=== PATIENT | female | born 1960 | race Caucasian/White ===

== ENCOUNTER 2022-09-04 14:35 | Emergency (ER) | payer BC ==
[2022-09-04 14:40] VITALS: TEMP 98
[2022-09-04] MEDS ORDERED: HYDROmorphone 1 MG/ML 1 ML SYRINGE IVP STA (15:23)
--- NOTE | 2022-09-04 15:26 | XR ---
EXAMINATION TYPE: XR ankle complete LT DATE OF EXAM: 09/04/2022 CLINICAL HISTORY: Fall injury with pain. Obvious deformity. TECHNIQUE: Frontal, lateral and oblique images of the left ankle are obtained. COMPARISON: None. FINDINGS: Acute comminuted displaced fracture through the lateral malleolus with 4.3 x 2.2 cm fractur e fragment displaced laterally and posteriorly. There is ankle mortise disruption with posterior and lateral displacement of the talus and abnormal lateral angulation or tilting. Moderate associated sof t tissue swelling is seen. No distinct fracture fragment at the medial malleolus. Likely fragmentatio n through the posterior malleolus. IMPRESSION: As above. Mortise disruption with displaced lateral malleolar fracture and suspected post erior malleolus or or tibial fracture.
--- NOTE | 2022-09-04 15:28 | ED ---
Lower Extremity Injury HPI - General Source: patient, RN notes reviewed Mode of arrival: ambulatory Limitations: no limitations <Kayla Lancaster - Last Filed: 09/04/22 18:11> <Kp Galloway - Last Filed: 09/04/22 22:19> - General Chief Complaint: Extremity Injury, Lower Stated Complaint: lt ankle injury Time Seen by Provider: 09/04/22 15:04 - History of Present Illness Initial Comments: Patient is a pleasant 62-year-old female presenting to the emergency room after slipping and falling while walking out of her bathroom earlier this afternoon. She reports that she believes that her foot hit the door frame of the bathroom and consequently immediately following she noticed a deformity to her ankle along with pain swelling and impaired range of motion. She denies any numbness or tingling to the joint and reports that though the foot is colder she admits to not wearing any socks since the event occurred and states that that does happen with her feet at times. She has had previous orthopedic injuries in the past but denies any other significant past medical history. (Stacey Lancaster) - Related Data Previous Rx's Medication Instructions Recorded Sulfamethox-Tmp 800-160Mg [Bactrim 2 tab PO Q12HR 7 Days #28 tab 05/25/22 DS 800-160 mg] Allergies Allergy/AdvReac Type Severity Reaction Status Date / Time No Known Allergies Allergy Verified 09/04/22 14:40 Review of Systems ROS Other: All systems not noted in ROS Statement are negative. <Kayla Lancaster - Last Filed: 09/04/22 18:11> ROS Other: All systems not noted in ROS Statement are negative. <Kp Galloway - Last Filed: 09/04/22 22:19> ROS Statement: Those systems with pertinent positive or pertinent negative responses have been documented in the HPI. Past Medical History Past Medical History: No Reported History History of Any Multi-Drug Resistant Organisms: None Reported Past Surgical History: Cholecystectomy Past Psychological History: No Psychological Hx Reported Smoking Status: Never smoker Past Alcohol Use History: None Reported Past Drug Use History: None Reported <Kayla Lancaster - Last Filed: 09/04/22 18:11> General Exam General appearance: alert, in no apparent distress Head exam: Present: atraumatic, normocephalic, normal inspection Eye exam: Present: normal appearance, PERRL, EOMI. Absent: scleral icterus, conjunctival injection, periorbital swelling ENT exam: Present: normal exam, mucous membranes moist Neck exam: Present: normal inspection, full ROM Respiratory exam: Absent: respiratory distress, accessory muscle use Cardiovascular Exam: Present: regular rate GI/Abdominal exam: Absent: distended Left Ankle exam: Present: tenderness, swelling, deformity, dislocation. Absent: full ROM, abrasion, laceration Neurovascular tendon exam: Present: no vascular compromise Gait: not tested/not observed Back exam: Present: normal inspection Neurological exam: Present: alert, oriented X3, CN II-XII intact Psychiatric exam: Present: normal affect, normal mood Skin exam: Present: warm, dry, intact, normal color. Absent: rash <Kayla Lancaster - Last Filed: 09/04/22 18:11> Course - Reevaluation(s) Time: 17:39 - Consultations Time: 15:28 <Kayla Lancaster - Last Filed: 09/04/22 18:11> Vital Signs 09/04/22 09/04/22 09/04/22 14:37 16:36 16:41 Temperature 98 F Pulse Rate 87 87 99 Respiratory 20 18 18 Rate Blood Pressure 151/65 151/79 150/84 O2 Sat by Pulse 100 100 100 Oximetry 09/04/22 09/04/22 09/04/22 16:46 16:51 17:06 Temperature Pulse Rate 91 89 80 Respiratory 12 14 18 Rate Blood Pressure 152/82 153/84 145/75 O2 Sat by Pulse 100 100 99 Oximetry 09/04/22 09/04/22 09/04/22 17:21 17:36 17:51 Temperature Pulse Rate 86 78 75 Respiratory 16 16 18 Rate Blood Pressure 150/86 151/83 145/68 O2 Sat by Pulse 99 97 98 Oximetry - Reevaluation(s) Reevaluation #1: Patient was some nausea and dry heaving without emesis after sedation and movement for computed tomography scan IV Zofran given with improvement in symptoms without episodes of emesis. Will continue to monitor. (Kayla Lancaster) - Consultations Consultation #1: Spoke with Dr. Dejesus attending orthopedist on-call for fall related fracture. He recommended reduction of joint in the emergency room then application of a bulky Cordero posterior splint with padding and molding post reduction computed tomography scan with nonweightbearing and then follow-up in the office next week. (Kayla Lancaster) Procedures - Orthopedic Fracture Reduction Fracture #1 Consent Obtained: written consent Side: left Fracture Reduction Location: tibia, other (lateral malleolus) Analgesia: procedural sedation Technique: direct manipulation Post Reduction X-rays Demonstrate: anatomical reduction Post-Reduction Neuro Exam: intact Post-Reduction Vascular Exam: intact Splint Applied: Yes (Bulky Cordero posterior splint with Alber wrap well-padded) Patient Tolerated Procedure: well - Orthopedic Splinting/Casting Injury #1 Side: left Lower Extremity Injury Location: ankle Lower Extremity Immobilizer: posterior splint, Cordero dressing, Alber wrap Other Orthopedic Equipment: crutches <Kayla Lancaster - Last Filed: 09/04/22 18:11> - Procedural Sedation Procedural Sedation Start Time: 16:40 Procedural Sedation Stop Time: 17:06 Indications: fracture/dislocation reduction ASA Class: I Mallampati Airway Score: 2 Time of Last PO Intake: 11:30 Preparation: cardiac monitor technician applied, pulse oximeter, capnometry used, supplemental O2 applied, suction/airway equipment at bedside Ketamine: IV Ketamine Dose: 40 IV Propofol Dose (mgs): 40 Complications: none Patient Tolerated Procedure: well <Kp Galloway - Last Filed: 09/04/22 22:19> - Orthopedic Fracture Reduction Fracture #1 Additional Comments: Neurovascularly intact following the splinting and reduction. <2s cap refill, intact sensation in dital left toes. (Kp Galloway) - Procedural Sedation Presedation Evaluation: Completed. No history of complications. (Kp Galloway) Medical Decision Making - Radiology Data Radiology results: report reviewed, image reviewed <Kayla Lancaster - Last Filed: 09/04/22 18:11> - Medical Decision Making 62-year-old female presenting to the emergency room with a slip and fall hitting her left ankle on the door frame of the bathroom. She reports immediate pain and dislocation at the time of injury. No numbness or tingling. Positive pulses. X-ray of the ankle obtained while in triage. X-ray of the left ankle complete intervertebral May showing a disc placed commuted fracture through the lateral malleolus. Will give Dilaudid for pain and page orthopedic on-call physician for consultation. Spoke with Dr. Dejesus as indicated in consult regarding fracture. No availability for surgery today. Advisement received 4 reduction and post reduction computed tomography scan with bulky Cordero splint application. No indication for laboratory studies. Attempted reduction without sedation unable to successfully reduce. Conscious sedation required for reduction. Conscious sedation with reduction and splint application completed by myself and Dr. Galloway see procedures for details regarding reduction sedation and splinting. Improved neurovascular status afterwards with increased capillary refill and improved warmth to tell. Unchang ed pulse. Will obtain post reduction CT as advised. Patient currently resting comfortably with and waking without complications from sedation. Miles nausea without emesis after computed tomography scan from sedation IV Zofran given without further episodes of emesis now resting comfortably and hemodynamically stable off of oxygen well orientated post-sedation. Computed tomography scan of the left ankle post reduction image interpreted by me shows good alignment and reduction of dislocated fracture to the lateral malleolus. Radiologist's report also reviewed. Return parameters to the emergency department reviewed. Will discharge patient home in stable condition with spouse and crutches for nonweightbearing status. Education regarding splint pain management and follow-up with orthopedist discussed. Case discussed and managed with Dr. Galloway. (Kayla Lancaster) - Radiology Data X-ray of the left ankle completed in impression by radiologist acute comminuted displaced fracture through the lateral malleolus with a 4.3 x 2.2 cm fracture fragment displaced laterally and posteriorly. There is ankle mortise disruption with posterior and lateral displacement of the talus and abnormal lateral angulation or tilting. Moderate soft tissue swelling is seen. No distinct fracture fragment at the base of the medial malleolus. Likely fragmentation through the posterior malleolus. CT of the left ankle impression by radiologist oblique fracture of the distal fibula and separation up to 5 mm of fragment no dislocation. Ankle mortise is anatomical. There is a triangular-shaped 12 mm chip fracture of the posterior malleolus on the medial aspect. No significant placement. Talus is intact. (Kayla Lancaster) Disposition Is patient prescribed a controlled substance at d/c from ED?: No <Kayla Lancaster - Last Filed: 09/04/22 18:11> <Kp Galloway - Last Filed: 09/04/22 22:19> Clinical Impression: Fracture of ankle, lateral malleolus, left, closed Disposition: HOME SELF-CARE Condition: Stable Instructions (If sedation given, give patient instructions): Ankle Fracture (ED), Crutch Instructions (ED), Moderate Sedation (ED) Additional Instructions: Please utilize Tylenol 3 starter pack for pain as needed, may supplement with [id number] ibuprofen. Please maintain splint to left lower extremity treating as a cast avoiding getting the splint wet. Please maintain nonweightbearing status of the left lower extremity with the use of crutches. Please contact orthopedic office on Wednesday to schedule an appointment with Dr. Dejesus. Please return to the Emergency Department if symptoms worsen or any other concerns. Referrals: Jose Miguel Thompson DO [Primary Care Provider] - 1-2 days Long Dejesus MD [Medical Doctor] - 1-2 days
[2022-09-04] MEDS ORDERED: KETAMINE HCL IN 0.9 % NACL 50 MG/5 ML SYRINGE IV ONE (16:02)
[2022-09-04] MEDS ORDERED: PROPOFOL 10 MG/ML 20 ML VIAL IV ONE (16:02)
[2022-09-04] MEDS ORDERED: SODIUM CHLORIDE 0.9% 1,000 ML IV STA (16:02)
[2022-09-04] MEDS ORDERED: ACET/COD 300 MG/30 MG STARTER PACK 6 TAB BTL PO STA (17:16)
[2022-09-04] MEDS ORDERED: ONDANSETRON 4 MG/2 ML VIAL IVP STA (17:22)
--- NOTE | 2022-09-04 17:47 | CT ---
CT scan of the left ankle. History post reduction. Fracture. Comparison none. FINDINGS: Images obtained from the mid tibia to the bottom of the calcaneus with no contrast. There is oblique fracture of the distal fibula. There is separation up to 5 mm of the fragments. No d islocation. The ankle mortise is anatomic. There is a triangular shaped 12 mm chip fracture of the po sterior malleolus on the medial aspect. No significant displacement. The talus is intact. There is mo derate plantar and Achilles calcaneal spurring. The bones of the midfoot appear intact. IMPRESSION: Acute fractures of the distal tibia and fibula as above. Ankle joint appears anatomic. No complicatin g process seen. Moderate calcaneal spurring.
[2022-09-04 17:58] VITALS: BP 145/68; PULSE 75; RESP 18
== END 2022-09-04 18:22 | disposition home or self-care (01) ==
LOC: EC 14:35
DX: S82.62XA Displaced fracture of lateral malleolus of left fibula, initial encounter for closed fracture (principal); W01.0XXA Fall on same level from slipping, tripping and stumbling without subsequent striking against object, initial encounter; Y92.002 Bathroom of unspecified non-institutional (private) residence as the place of occurrence of the external cause
CPT/HCPCS: 99284; 96374; 96375 ×2; 96361 ×2; 99152; 99153 ×4; 73610; 73700; 27788; J2405; J1170; J2704; 29515

== ENCOUNTER 2022-09-16 14:19 | Day surgery (SDC) | payer BC ==
[2022-09-11 13:30] VITALS: BMI 27.4
[2022-09-16 14:02] VITALS: RESP 16
[~2022-09-16 14:19] MED LIST: DEXAMETHASONE SOD PHOSPHATE 4 MG/ML 1 ML VIAL IV ONE; LACTATED RINGERS 1,000 ML IV SCH; LIDOCAINE 1% (10MG/ML) FOR IV START INTRADERMA PRN; MIDAZOLAM 2 MG/2 ML VIAL IV PRN; ONDANSETRON 4 MG/2 ML VIAL IVP ONE
[2022-09-16] MEDS ORDERED: fentaNYL (PF) 50 MCG/1 ML VIAL IVP ONE (14:50)
[2022-09-16] MEDS ORDERED: MIDAZOLAM 2 MG/2 ML VIAL IVP ONE (14:50)
[2022-09-16] MEDS ORDERED: ROPIVACAINE 5 MG/ML 30 ML VIAL ONE (16:21)
[2022-09-16] MEDS ORDERED: LIDOCAINE 4% LTA KIT (4 ML) TOPICAL ONE (16:21)
[2022-09-16] MEDS ORDERED: SODIUM CHLORIDE 0.9% (PF) 10 ML VIAL ONE (16:21)
[2022-09-16] MEDS ORDERED: fentaNYL (PF) 50 MCG/ML 2 ML AMP ONE (16:21)
[2022-09-16] MEDS ORDERED: MIDAZOLAM 2 MG/2 ML VIAL ONE (16:21)
[2022-09-16] MEDS ORDERED: PROPOFOL 10 MG/ML 20 ML VIAL IV ONE (16:21)
[2022-09-16] MEDS ORDERED: SUCCINYLCHOLINE CHLORIDE 200 MG/10 ML VIAL IV ONE (16:21)
[2022-09-16] MEDS ORDERED: LIDOCAINE 2% INJ 20 MG/ML (2 ML VIAL) ONE (16:21)
--- NOTE | 2022-09-16 16:40 | P.ANPRN ---
Procedure Note - Anesthesia - Nerve Block Performed Left Adductor Canal Time Out Performed: Yes (14:49) Date of Procedure: 09/16/22 Procedure Start Time: 14:49 Procedure Stop Time: 14:54 Location of Patient: PreOp Indication: Acute Post-Operative Pain, Requested by Surgeon (Dr Dejesus) Sedation Type: Sedate with meaningful contact maintained Preparation: Sterile Prep Position: Supine Catheter: None Needle Types: Pajunk Needle Gauge: 21 Ultrasound used to visualize needle placement: Yes Ultrasound used to observe medication spread: Yes Injectate: 0.5% Ropivacaine (see comment for volume) (15cc) Blood Aspirated: No Pain Paresthesia on Injection Noted: No Resistance on Injection: Normal Image Stored and Saved: Yes Events: Uneventful and Well Tolerated
--- NOTE | 2022-09-16 16:41 | P.ANPRN ---
Procedure Note - Anesthesia - Nerve Block Performed Left Popliteal Time Out Performed: Yes Date of Procedure: 09/16/22 Procedure Start Time: 14:56 Procedure Stop Time: 15:01 Location of Patient: PreOp Indication: Acute Post-Operative Pain, Requested by Surgeon (Dr Dejesus) Sedation Type: Sedate with meaningful contact maintained Preparation: Sterile Prep Position: Right Lateral Catheter: None Needle Types: Pajunk Needle Gauge: 21 Ultrasound used to visualize needle placement: Yes Ultrasound used to observe medication spread: Yes Injectate: 0.5% Ropivacaine (see comment for volume) (15cc +5cc PF normal saline) Blood Aspirated: No Pain Paresthesia on Injection Noted: No Resistance on Injection: Normal Image Stored and Saved: Yes Events: Uneventful and Well Tolerated
[2022-09-16] MEDS ORDERED: LACTATED RINGERS 1,000 ML IV ONE ×3 (17:10→18:09)
--- NOTE | 2022-09-16 18:15 | FL ---
Intraoperative/procedural fluoroscopic services were provided. Total fluoroscopy time is 1 minute 18 seconds with a total of 5 submitted images to PACS. Please see the operative/procedural note for furt her details.
[2022-09-16] MEDS: HYDROmorphone 0.5 MG/0.5 ML SYRINGE IVP PRN ×3 (18:24→18:54)
[2022-09-16 18:29] VITALS: TEMP 97.2
[2022-09-16] MEDS ORDERED: HYDROcodone/APAP 5-325MG 1 EACH TAB ONE (19:07)
[2022-09-16 19:36] VITALS: BP 158/76; PULSE 94
--- NOTE | 2022-09-23 20:48 | P.OP ---
Date of Procedure: 09/16/22 Preoperative Diagnosis: 1. Closed left trimalleolar equivalent ankle fracture dislocation Postoperative Diagnosis: Same Procedure(s) Performed: 1. Open reduction internal fixation of left lateral malleolus fracture 2. Open repair left ankle deltoid ligament 3. Open reduction and internal fixation left ankle syndesmosis Anesthesia: luz MEADOWS Surgeon: Long Dejesus Road Conductor #1: Kyrie Hurt Estimated Blood Loss (ml): 10 IV fluids (ml): 1,100 Pathology: none sent Condition: stable Disposition: PACU Indications for Procedure: The patient is very pleasant previously healthy 62-year-old female who sustained a closed left injury to her left ankle. She was seen in the emergency department here and underwent a closed reduction and application of splint. She also had a postreduction computed tomography scan. She was referred to my office. I met with the patient and her . My recommendation was to proceed with open reduction internal fixation of her left ankle. The patient understands the potential risks and competitions of surgery. I had a long discussion with the patient prior to surgery on the potential risks and complications of ankle fracture surgery. These risks include but are not l imited to risk of anesthesia, superficial infection, deep infection, delayed wound healing, superficial wound necrosis, deep wound necrosis, damage to local blood vessels or nerves, fracture nonunion, fracture malunion, postoperative displacement of the ankle mortise, postoperative displacement of the syndesmosis, malreduction of the ankle mortise, posttraumatic arthritis, chronic pain, chronic swelling, an inability to regain preinjury level of function, generalized dissatisfaction with surgical outcome, DVT, PE, other medical complications, and possibly loss of life or limb. The patient understands that while these are the most common complications there are other less common complications possible. They provided their verbal and written consent to go forward with surgery. Description of Procedure: The patient was identified in preoperative holding and the correct left ankle was marked with my initials. I reviewed the consent form with the patient on all of her questions were answered. The patient was given a block by anesthesia. She was then brought back to the operating room. She was transferred to the OR table where general anesthetic and preoperative antibiotics were given. The splint was taken down off of her left leg and there was wrinkling of the skin. A tourniquet was applied the proximal aspect of the left leg. A bump was placed in the left buttock internally rotating the leg. A ramp was used to elevate the left leg to facilitate imaging. The nonoperative leg was secured to the OR table with foam and tape. The left arm was carefully draped across the body. None sterile drapes were applied. A chlorhexidine brush was used for a pre-scrub. The left leg was prepped and draped in the standard sterile fashion. Prior to starting surgery timeout was performed identifying the correct patient, operative extremity, and procedure. The patient's leg was then elevated, exsanguinated with an Esmarch bandage, and the tourniquet was inflated to 250 mmHg. I began by making a longitudinal incision centered directly over the lateral malleolus. Skin incision with a scalpel and dissection was carried down carefully through subcutaneous tissue. A branch of the superficial peroneal nerve was identified and carefully retracted. The periosteum over the distal fibula and the fascia over the peroneal muscles was incised directly over the fibula. The fracture was immediately identified. Hematoma and early callus was gently debrided from the fracture site. Reduction was performed and held with a [id number] reduction clamp. A 2.7 mm lag screw was placed anteriorly to posteriorly across the fracture generating excellent compression. A precontoured locking distal fibula plate was then placed over the lateral malleolus. Its position was verified with fluoroscopy. It was centered over the fibula and nonlocking screws were placed proximal to the fracture. A single nonlocking screw was placed distal to the fracture bringing the plate down to bone. Locking screws were then placed distally. The nonlocking screw was removed distally and replaced with a locking screw so that all screws distally would be flush with the plate to avoid prominence. Fluoroscopy was brought in to verify the reduction of the fibula which appeared to be anatomically reduced. A manual external rotation stress x-ray was performed which showed persistent widening of the medial clear space. I then elected to perform an open deltoid ligament repair. A longitudinal incision was made directly over the medial malleolus. Skin incision with a scalpel and dissection was carried down carefully through subcutaneous tissue with tenotomy scissors. A branch of the saphenous vein was controlled with electrocautery. Immediately upon incising the deep tissue there is a full-thickness deltoid disruption off the medial malleolus. A portion of the deltoid was flipped into the medial gutter of the ankle joint. This interposed tissue was gently removed. On inspection the medial gutter there was a large osteochondral fragment. On inspection of the medial dome of the talus there was a large osteochondral fracture. This was perforated with a 0.054 K wire. Once the medial gutter was found to be free of debris was thoroughly irrigated. A fiber Greta suture anchors placed in the medial malleolus and fibers of the deltoid ligament were repaired back down to a bleeding bed of bone over the medial malleolus. A manual external rotation stress x-ray showed persistent widening of the medial clear space so I elected to place syndesmotic fixation. A guidepin from the [employer] tight rope set was placed at the level of the syndesmosis through the lateral plate across all 4 cortices of the fibula and tibia. The position of the wire was verified with fluoroscopy. A cannulated drill was then used to create a path for the tight rope. The tight rope was dispensed and passed from lateral to medial. The Endobutton was engaged and found to sit flush with the medial distal tibia. It was then tensioned nicely reducing the medial clear space and incisura. The sutures were then cut flush with the plate. Final fluoroscopic images including a mortise of the ankle and lateral showed adequate reduction of both the ankle mortise and syndesmosis. Both wounds were then thoroughly irrigated and closed in layers using interrupted nylon sutures for the skin. The tourniquet was let down. A well- padded bulky Cordero splint was then placed with the ankle at neutral. I verified that all instrument, sponge, and sharp counts were correct. The patient was then awoken from her anesthetic, transferred from the OR table to a rney, and brought to recovery having tolerated the procedure well. Kyrie Hurt PA-C was required for skilled child life assistant for patient positioning, surgical exposure, reduction of fracture, placement of hardware, closure of wound, and application of splint. Plan: The patient is going to discharge home as an outpatient. She is remain strictly nonweightbearing on her operative extremity. She will leave her splint on at all times. She was given a narcotic for pain, aspirin for DVT prophylaxis, and Colace for stool softener. She'll follow-up in the office in 2 weeks for splint removal and nonweightbearing x-rays of the ankle.
== END 2022-09-16 19:59 | disposition home or self-care (01) ==
LOC: OR 14:19
PROVIDERS: ATTEND Orthopaedic Surgery
DX: S82.852A Displaced trimalleolar fracture of left lower leg, initial encounter for closed fracture (principal); G89.18 Other acute postprocedural pain
CPT/HCPCS: 64447; 64445; 76942; 73600; 27792; 27695; 27822; C1713 ×2; J2250; J0330; J1100; J0690; J2405; J3010 ×2; J2795; J2704; J1170; J2001

== ENCOUNTER 2023-02-11 07:25 | Day surgery (SDC) | payer BC ==
[2023-02-10 09:13] VITALS: BMI 27.4
[~2023-02-11 07:25] MED LIST changes: -DEXAMETHASONE SOD PHOSPHATE 4 MG/ML 1 ML VIAL IV ONE; -LIDOCAINE 1% (10MG/ML) FOR IV START INTRADERMA PRN; -MIDAZOLAM 2 MG/2 ML VIAL IV PRN; -ONDANSETRON 4 MG/2 ML VIAL IVP ONE
[2023-02-11 07:38] VITALS: TEMP 97.9
[2023-02-11] MEDS ORDERED: PROPOFOL 10 MG/ML 20 ML VIAL IV ONE (07:51)
--- NOTE | 2023-02-11 08:21 | P.GSHP ---
History of Present Illness H&P Date: 02/11/23 CHIEF COMPLAINT: Colon screen HISTORY OF PRESENT ILLNESS: The patient is a 62-year-old female who presents for colon screen. Lower endoscopy was offered for further evaluation and management. PAST MEDICAL HISTORY: Please see list. PAST SURGICAL HISTORY: Please see list. MEDICATIONS: Please see list. ALLERGIES: Please see list. SOCIAL HISTORY: No illicit drug use FAMILY HISTORY: No reports of Crohn disease or ulcerative colitis. REVIEW OF ORGAN SYSTEMS: CONSTITUTIONAL: No reports of fevers or chills. PHYSICAL EXAM: VITAL SIGNS: Stable GENERAL: Well-developed pleasant in no acute distress. HEENT: No scleral icterus. Extraocular movements grossly intact. Moist buccal mucosa. NECK: Supple without lymphadenopathy. CHEST: Unlabored respirations. Equal bilateral excursions. CARDIOVASCULAR: Regular rate and rhythm. Distal 2+ pulses. ABDOMEN: Soft, nontender, nondistended. MUSCULOSKELETAL: No clubbing, cyanosis, or edema. ASSESSMENT: 1. Colon screen. PLAN: 1. Recommend proceeding with a lower endoscopy Past Medical History Past Medical History: GERD/Reflux, Osteoarthritis (OA) History of Any Multi-Drug Resistant Organisms: None Reported Past Surgical History: Cholecystectomy, Orthopedic Surgery Additional Past Surgical History / Comment(s): REPAIRED LEFT EYE SOCKET , COLONOSCOPY, ORIF LT ANKLE, Past Anesthesia/Blood Transfusion Reactions: No Reported Reaction Smoking Status: Never smoker - Past Family History Mother Family Medical History: No Reported History Medications and Allergies Home Medications Medication Instructions Recorded Confirmed Type Omeprazole [PriLOSEC] 20 mg PO AC-BRKFST 09/11/22 02/11/23 History Calcium Carbonate/Vitamin D3 1 each PO DAILY 02/10/23 02/11/23 History [Calcium 600 mg-D3 10 Mcg (400 Iu)] Allergies Allergy/AdvReac Type Severity Reaction Status Date / Time No Known Allergies Allergy Verified 02/11/23 07:40 Surgical - Exam Vital Signs Temp Pulse Resp BP Pulse Ox 97.9 F 87 16 153/79 100 02/11/23 07:37 02/11/23 07:37 02/11/23 07:37 02/11/23 07:37 02/11/23 07:37
--- NOTE | 2023-02-11 08:29 | P.PCN ---
Date of Procedure: 02/11/23 Description of Procedure: PREOPERATIVE DIAGNOSIS: Colonoscopy screening. POSTOPERATIVE DIAGNOSIS: Colonoscopy screening. Diverticulosis, scattered. OPERATION: Colonoscopy to the cecum, ileocecal valve and appendiceal orifice. SURGEON: Gaviota Whitlock MD. ANESTHESIA: MAC. INDICATIONS: The patient is a 62-year-old female who presents for colonoscopy screening. Last colonoscopy 10 years ago. Benefits and risks were described and informed consent was obtained. DESCRIPTION OF PROCEDURE: The patient had undergone Sutab prep. The patient had been brought into the operating room and laid in the left lateral decubitus position. After adequate intravenous sedation, the rectum was examined with 2% lidocaine jelly. External hemorrhoids were encountered. The rectal tone was within normal limits. No lesions were palpated in the rectal vault. An Olympus colonoscope was advanced until the cecum, ileocecal valve and appendiceal orifice were clearly viewed. The prep was fair. Scattered diverticulosis was encountered. I redundant sigmoid colon requiring multiple abdominal wall pressure No colonic polyps were found. No evidence of focal colitis was found. Retroflexion of the scope demonstrated grade 3 internal hemorrhoids without active bleeding or inflammation. The colon was desufflated. The patient had tolerated the procedure well. Withdrawal time was over 6 minutes. FINDINGS: Aronchick preparation quality scale 2+(1-5) Internal hemorrhoids, grade 3 External prolapsed hemorrhoids, grade 3 No arteriovenous malformations. No adenomatous polyps. No focal colitis. Sigmoid diverticulosis Highly redundant sigmoid colon RECOMMENDATIONS: Lower endoscopy 2032 Plan - Discharge Summary Discharge Rx Participant: No New Discharge Prescriptions: Continue Omeprazole [PriLOSEC] 20 mg PO AC-BRKFST Calcium Carbonate/Vitamin D3 [Calcium 600 mg-D3 10 Mcg (400 Iu)] 1 each PO DAILY Discharge Medication List Omeprazole [PriLOSEC] 20 mg PO AC-BRKFST 09/11/22 [History] Calcium Carbonate/Vitamin D3 [Calcium 600 mg-D3 10 Mcg (400 Iu)] 1 each PO DAILY 02/10/23 [History] Follow up Appointment(s)/Referral(s): Gaviota Whitlock MD [STAFF PHYSICIAN] - As Needed Patient Instructions/Handouts: Diverticulosis Diet (GEN), Diverticulosis (DC) Activity/Diet/Wound Care/Special Instructions: Repeat colonoscopy 2032 Discharge Disposition: HOME SELF-CARE
[2023-02-11 08:43] VITALS: BP 1318/83; PULSE 76; RESP 16
== END 2023-02-11 09:00 | disposition home or self-care (01) ==
LOC: ORWHC2ENDO 07:25
PROVIDERS: ATTEND Surgery Plastic and Reconstructive Surgery
DX: Z12.11 Encounter for screening for malignant neoplasm of colon (principal); K57.30 Diverticulosis of large intestine without perforation or abscess without bleeding; K21.9 Gastro-esophageal reflux disease without esophagitis; M19.90 Unspecified osteoarthritis, unspecified site; K64.8 Other hemorrhoids; K64.2 Third degree hemorrhoids; Z90.49 Acquired absence of other specified parts of digestive tract; Z98.890 Other specified postprocedural states; Z79.899 Other long term (current) drug therapy
CPT/HCPCS: 45378; J2704